=== PATIENT | female | born 1970 | race Caucasian/White ===

== ENCOUNTER 2023-09-11 14:34 | Emergency (ER) | payer OTHER, SELFPAY ==
[2023-09-11 14:37] VITALS: BP 144/91
[2023-09-11 16:43] VITALS: BMI 34.6
--- NOTE | 2023-09-11 17:06 | ED.GENMED ---
History of Present Illness
General
Chief Complaint: Eye Problems
Source: patient
Exam Limitations: none
Time Seen by Provider: 09/11/23 16:42
Nursing documentation reviewed up to this point in time: agreed with
Travel History
Have you had any contact with someone who has COVID-19?: No
Do you have any symptoms of coronavirus? Fever > 100 degrees, chills, cough, shortness of breath, sore throat, loss of taste or smell, muscle aches, or headache?: No
History of Present Illness
History of Present Illness:
Patient to ED with complaint of pain to left eye. Symptoms started this AM and has gotten progressively worse. No known history of trauma. No prior history of same. Brought to ED by spouse for eval.
Past History
Past History
ED Past Medical History: None
ED Past Surgical History: Tonsilectomy and Other (ear tubes, sinus surgery, dental implants, breast augmentation)
Social History
Tobacco: Non-smoker
Alcohol: Occasional
Review of Systems
Review of Systems
Allergies reviewed?: Yes
All Other Systems: ROS reviewed and negative except as documented in HPI and ROS
Constitutional: Reports no symptoms
EENT: Reports tearing (left eye pain)
Musculoskeletal: Reports no symptoms
Skin: Reports no symptoms
Neurological: Reports no symptoms
Psychiatric: Reports no symptoms
Phy Exam
General Physical Exam
General Presentation: well appearing and moderate distress
General age: appears stated age
General Skin: warm and dry
General Habitus: normal
General Mental: alert
General Hydration: appears well hydrated
Eye Exam
Eye Exam: PERRL, EOMI, globe normal and other (Left conjunctival injection. Lids everted, swept with qtip, no foreign body detected)
Eye Exam General: PERRL: bilateral and EOM intact: bilateral
Conjunctival Changes: left: watery discharge
Cornea Exam: abrasion: Left (superficial punctate keratitis)
Type of Exam: slit lamp, simple and fluorescein
Musculoskeletal Exam
Musculoskeletal Exam: full ROM and neuro vasc intact
Skin Exam
Skin Exam: normal color, warm/dry and no rash
Psychiatric Exam
Psychiatric Exam: normal mood/affect
Course
Orders/Labs/Results
Orders:
Orders
09/11/23 16:58
Eye Procedures- Treatment ONCE
Location: Left Eye
Type of Procedure: Eye Patch Dressing
Cyclopentolate 1% [Cyclogyl 1% Eye Drops] See Dose Instructions OPHTH ONCE ONE
Hydrocodone 5/APAP 325 [[place] 5/325] 1 tablet PO NOW STA
Tobramycin 0.3% [Tobrex 0.3% Eye Drops] See Dose Instructions OPHTH NOW STA
Vital Signs
Initial and Last Documented VS:
Initial Vital Signs
Temp Pulse Resp BP Pulse Ox
98.1 F 85 16 144/91 97
09/11/23 14:37 09/11/23 14:37 09/11/23 14:37 09/11/23 14:37 09/11/23 14:37
Last Documented Vital Signs
Temp Pulse Resp BP Pulse Ox
98.1 F 85 16 144/91 97
09/11/23 14:37 09/11/23 14:37 09/11/23 14:37 09/11/23 14:37 09/11/23 14:37
*Critical Care Note
Total Time (30-74mins, 75-104mins- exclusive of procedures): Not Applicable
ED Attending Note
-
Portions of this chart may have been created with voice recognition software.� Occasional wrong word or��sound alike� substitutions may have occurred due to the inherent limitations of voice recognition software.
Discharge Plan
Departure
Patient Disposition: Home (Routine Discharge)
Date of Disposition: 09/11/23
Time of Disposition: 16:59
Patient with high blood pressure during this ER visit?: No
Condition: Good
Covid-19: Not Applicable
Discharge Problem:
Punctate keratitis, left eye
Instructions: Corneal Abrasion (DC), Ibuprofen, How to Use Eye Drops
Prescriptions:
New
hydrocodone-acetaminophen 5-325 mg tablet
1 tab PO Q4H PRN (Reason: Pain) Qty: 10 0RF
tobramycin 0.3 % drops
1 drp ophthalmic (eye) Q4HWA Qty: 5 0RF
Referrals:
Kirstie Hutchins MD [Active] - Follow up in 2-3 days
Interventions
Interventions:
*Risk Screen - Suicide Last Done: 09/11/23 16:43
*General Assessment Last Done: 09/11/23 16:43
*Neglect/Abuse Screening Last Done: 09/11/23 16:43
ED- Fall Risk Assessment Last Done: 09/11/23 16:43
*ED COVID-19 Vaccine History Last Done: 09/11/23 14:37
Discharge Date and Time
Print Language: PORTUGUESE
[2023-09-11] MEDS: NORCO 5/325 1 TABLET PO (17:19)
[2023-09-11] MEDS: CYCLOGYL 1% EYE DROPS 1 DROP OPHTH (17:20)
[2023-09-11] MEDS: TOBREX 0.3% EYE DROPS 1 DROP OPHTH (17:33)
== END 2023-09-11 17:38 | disposition home or self-care (01) ==
LOC: EMR 14:34
PROVIDERS: EMERGENCY PHYSICIAN Emergency Medicine; FAMILY PHYSICIAN Internal Medicine
DX: H16.142 Punctate keratitis, left eye (principal)
CPT/HCPCS: 99282

== ENCOUNTER → 2023-11-26 11:19 | Outpatient (REF) | payer OTHER, SELFPAY | LOC: HWRAD 11:19 | PROVIDERS: ATTENDING PHYSICIAN Internal Medicine | DX: J32.9 Chronic sinusitis, unspecified (principal) | CPT/HCPCS: 70486 ==